=== PATIENT | female | born 1935 | race Caucasian/White ===

== ENCOUNTER 2022-03-17 10:33 | Inpatient (IN) ==
--- NOTE | 2022-02-12 13:12 | PAT Medication Instructions ---
Medication Instructions Date of Service February 12, 2022 Home Medications acetaminophen 500 mg capsule 1,000 mg PO Q6H PRN cholecalciferol (vitamin D3) 25 mcg (1,000 unit) capsule (Vitamin D3) 25 mcg PO QAM citalopram 40 mg tablet 40 mg PO QAM famotidine 20 mg tablet 20 mg PO DAILY PRN food supplemt, lactose-reduced 1 - 2 ea PO DAILY glucosamine-chondroitin 250 mg-200 mg tablet (Osteo Bi-Flex) 2 tab PO QAM guar gum 1 - 2 tbsp PO DAILY hydrochlorothiazide 12.5 mg capsule 12.5 mg PO QAM Centrum Silver Women 1 tab PO QAM omega-3 fatty acids 1,000 mg PO QAM potassium gluconate 595 mg (99 mg) tablet 595 mg PO QAM timolol 0.25 % eye drops 1 drp OPHTHALMIC (EYE) QAM trazodone 50 mg tablet 50 mg PO HS PRN STOP taking 2 weeks before surgery (or as soon as possible if surgery is within 2 weeks) glucosamine-chondroitin 250 mg-200 mg tablet (Osteo Bi-Flex) 2 tab PO QAM omega-3 fatty acids 1,000 mg PO QAM DO NOT take the morning of surgery cholecalciferol (vitamin D3) 25 mcg (1,000 unit) capsule (Vitamin D3) 25 mcg PO QAM food supplemt, lactose-reduced 1 - 2 ea PO DAILY guar gum 1 - 2 tbsp PO DAILY hydrochlorothiazide 12.5 mg capsule 12.5 mg PO QAM Centrum Silver Women 1 tab PO QAM potassium gluconate 595 mg (99 mg) tablet 595 mg PO QAM Take morning of surgery With a small sip of water, OTHERWISE NOTHING TO EAT OR DRINK AFTER MIDNIGHT: acetaminophen 500 mg capsule 1,000 mg PO Q6H PRN (okay to take up to 4 hours prior to surgery if needed) citalopram 40 mg tablet 40 mg PO QAM famotidine 20 mg tablet 20 mg PO DAILY PRN (if needed) timolol 0.25 % eye drops 1 drp OPHTHALMIC (EYE) QAM Take evening before surgery acetaminophen 500 mg capsule 1,000 mg PO Q6H PRN (if needed) famotidine 20 mg tablet 20 mg PO DAILY PRN (if needed) trazodone 50 mg tablet 50 mg PO HS PRN (if needed) Other Notes If you have any questions please call us at [phone] or [phone] or [phone] or [phone]
--- NOTE | 2022-02-17 09:00 | Anesthesiology Consultation ---
Date of Service February 17, 2022 Assessment & Plan (1) Encounter for pre-operative examination: Chart Review Chart Review: Acceptable Risk for Surgery (pending preop Covid testing results and most recent PCP note if available ) and Patient seen in Pre Admission Testing - Will attempt to get most recent PCP note scheduled 03/09/22 Per PAT appt on 02/17/22, patient denies any recent travel or large group activities. No known Covid positive exposures or Covid related symptoms. No known Covid infection in the past 90 days. Pt is vaccinated for Covid. Preop Covid testing scheduled 03/15/22 = will await results. Educated on importance of self quarantining, social distancing and wearing mask in public for the patient one week prior to surgery and after Covid testing done Teaching & Discussion Pre-Anesthesia Teaching/Discussion Notes: Instructed NPO after midnight before surgery,except medications with 15 cc of water. Medication instructions provided according to the PAT guidelines. History Surgery Operation Date: 03/17/22 13:25 Proposed Procedures p Right Total Shoulder Arthroplasty Reverse - Moses Luo MD Height/Weight Height: 5 ft 2 in Weight: 66.7 kg Allergies Allergy/AdvReac Type Severity Reaction Status Date / Time alendronate sodium Allergy Unknown HAS NO Verified 02/12/22 11:27 IDEA OF REACTION finasteride [From Proscar] Allergy Unknown UNSURE OF Verified 02/12/22 11:27 REACTION oxaprozin Allergy Unknown UNSURE OF Verified 02/12/22 11:27 REACTION Medications Home Medications Medication Instructions Recorded Confirmed Last Taken acetaminophen 500 mg capsule 1,000 mg PO Q6H PRN 02/12/22 02/12/22 Unknown cholecalciferol (vitamin D3) 25 25 mcg PO QAM 02/12/22 02/12/22 Unknown mcg (1,000 unit) capsule (Vitamin D3) citalopram 40 mg tablet 40 mg PO QAM 02/12/22 02/12/22 Unknown famotidine 20 mg tablet 20 mg PO DAILY PRN 02/12/22 02/12/22 Unknown food supplemt, lactose-reduced 1 - 2 ea PO DAILY 02/12/22 02/12/22 Unknown glucosamine-chondroitin 250 mg-200 2 tab PO QAM 02/12/22 02/12/22 Unknown mg tablet (Osteo Bi-Flex) guar gum 1 - 2 tbsp PO DAILY 02/12/22 02/12/22 Unknown hydrochlorothiazide 12.5 mg capsule 12.5 mg PO QAM 02/12/22 02/12/22 Unknown multivit with 1 tab PO QAM 02/12/22 02/12/22 Unknown pqhiknlb-rfxd-HL-lutein 8 mg iron-400 mcg-300 mcg tablet (Centrum Silver Women) omega-3 fatty acids 1,000 mg PO QAM 02/12/22 02/12/22 Unknown potassium gluconate 595 mg (99 mg) 595 mg PO QAM 02/12/22 02/12/22 Unknown tablet timolol 0.25 % eye drops 1 drp OPHTHALMIC (EYE) QAM 02/12/22 02/12/22 Unknown trazodone 50 mg tablet 50 mg PO HS PRN 02/12/22 02/12/22 Unknown Past Medical History Medical History Anxiety Glaucoma PRESCRIBED TIMOLOL- follows with eye doctor routinely History of diverticulitis Jun 2021 - seen in ED and treated per 11/2021 PCP note Hypertension Insomnia Lumbar stenosis Per PCP records- with front thigh pain with prolonged ambulation- improved with Tylenol Poor historian Urinary incontinence Exercise / Class Metabolic Activity III < 4 Walking/Shop/Light housework (one flight of stairs, no chest pain, mild SOB ) Past Family History Family History Other No family history of adverse response to anesthesia Past Surgical History Surgical History H/O abdominal surgery BENIGN GROWTH REMOVED>PT UNSURE OF DETAILS *CAN ONLY REMEMBER SQUASH IN SIZE AND CAUSED INTERNAL BLEEDING. History of anesthesia reaction SHOULDER SURGERY>HAD DIFFICULTY BREATHING IN RECOVERY PHASE History of appendectomy History of cataract surgery RT/LEFT History of colonoscopy History of hysterectomy Per records History of total knee replacement RT/LEFT History of total shoulder replacement LEFT S/p bilateral blepharoplasty Past Anesthesia History No Hx of Anesthesia Complications (with one exception of SOB after one surgery (either shoulder or knee surgery many years ago) (just given oxygen and had no other issues); no issues with subsequent surgeries ) and No Family Hx of Anesthesia Complications History of PONV No Hx of Motion Sickness and History of PONV (one episode of PONV s/p eye surgery ) Social History Smoking Status: Never smoker Hx Alcohol Use: No substance use type: does not use Review of Systems Hx of blood transfusion - many years ago- s/p surgery Patient denies chest pain, shortness of breath, dyspnea on exertion, reflux, cough, wheezing, palpitations. No hx of seizures, stroke, NC, apnea/snoring. No hx of blood clots. Physical Exam Vital Signs VITALS BP 132/68 P 54 TEMP 97.9 SP02 97% RESP 16 Constitutional no acute distress ENMT Mouth: no TMJ clicking Thyromental Distance: > or= 3.5 Finger Breadths (3.5) Mallampati Class: I (smaller airway ) Top front teeth capped Missing molars and side teeth Neck + limited neck extension Respiratory normal respiratory effort; no respiratory distress Auscultation: lungs clear to auscultation bilaterally; no wheezes Cardiovascular Rate/Rhythm: regular rate and regular rhythm Heart Sounds: no murmur Vessels: no carotid bruit Musculoskeletal Spine: + pain with cervical ROM (tighess with neck extension ) Extremities: extremities normal to inspection Psychiatric Orientation: alert Lab Results Anesthesia Preop Results Results Anesthesia Widget: WBC 4.86 K/uL (4.8-10.8) 02/17/22 Hgb 11.5 g/dL (12.0-16.0) L 02/17/22 Hct 34.7 % (37-47) L 02/17/22 Plt 146 K/uL (130-400) 02/17/22 Na 137 mmol/L (136-145) 02/17/22 K 3.9 mmol/L (3.5-5.1) 02/17/22 Cl 103 mmol/L (98-107) 02/17/22 CO2 29 mmol/L (21-32) 02/17/22 BUN 30 mg/dl (6-23) H 02/17/22 Creat 1.02 mg/dl (0.6-1.2) 02/17/22 Glucose Level 89 mg/dl (70-99(Fasting)) 02/17/22 PT 11.0 Seconds (9.0-12.0) 02/17/22 PTT 25.8 Seconds (21.0-31.0) 02/17/22 INR 1.0 (0.9-1.1) 02/17/22 HA1c 5.4 % (4.5-5.6) 02/17/22 Urine Color Yellow 02/17/22 Urine Appearance Clear (Clear) 02/17/22 Urine pH 5.5 (4.5-7.5) 02/17/22 Urine Specific [place] 1.018 (1.000-1.030) 02/17/22 Urine Protein Negative (Negative) 02/17/22 Urine Glucose (UA) Negative (Negative) 02/17/22 Urine Ketones Negative (Negative) 02/17/22 Urine Blood Negative (Negative) 02/17/22 Urine Nitrite Negative (Negative) 02/17/22 Urine Bilirubin Negative (Negative) 02/17/22 Urine Urobilinogen Negative (Negative) 02/17/22 Urine Leukocyte Esterase 2+ (Negative) H 02/17/22 Urine WBC (Auto) 10-30 /hpf (0-5) H 02/17/22 Urine RBC (Auto) 0-4 /hpf (0-4) 02/17/22 Urine Hyaline Casts (Auto) 1-5 /lpf (0-5) 02/17/22 Urine Epithelial Cells (Auto) 5-10 /lpf (0-5) H 02/17/22 Urine Bacteria (Auto) Negative (Negative) 02/17/22 Blood Type A Positive 02/17/22 Antibody Screen NEGATIVE 02/17/22 Testing Electrocardiogram Date: 02/17/22 Findings: + SB @ (52bpm ) Otherwise normal EKG per cardio. Chest X-Ray Date: 02/17/22 Findings: + NAD
--- NOTE | 2022-03-16 11:44 | History & Physical Report ---
Date of Service March 16, 2022 Assessment & Plan (1) Primary osteoarthritis, right shoulder: Plan: Treatment options discussed with the patient. She has failed conservative measures and would like to proceed with surgical intervention. Risks, benefits and alternatives to surgery including but not limited to infection, DVT, pain, stiffness, need for revision surgery, damage to blood vessels, damage to nerves, PE, , were discussed with the patient and they wish to proceed. Plan for right shoulder reverse total shoulder arthroplasty scheduled for [facility] on 03/17/[address] Luo. All questions answered. Patient will follow up post op. History of Present Illness Chief Complaint: Right shoulder pain Primary Care Provider: Wilbert Henson MD 86yo female with PMHx significant for HTN, anxiety, GERD presents with ongoing right shoulder pain. Pain is interfering with her daily activities. She has failed conservaitve measures and would like to proceed with surgical intervention. Patient denies headaches, sweats, fevers, chills, double vision, blurred vision, cough, sore throat, dysphagia, chest pain, sob, wheezing, n/v/d/c, numbness, tingling, fatigue, urinary symptoms, mood disorders. ROS positive for right shoulder. pain and stiffness. Allergies Allergy/AdvReac Type Severity Reaction Status Date / Time alendronate sodium Allergy Unknown HAS NO Verified 02/12/22 11:27 IDEA OF REACTION finasteride [From Proscar] Allergy Unknown UNSURE OF Verified 02/12/22 11:27 REACTION oxaprozin Allergy Unknown UNSURE OF Verified 02/12/22 11:27 REACTION Home Medications Medication Instructions Recorded Confirmed Type acetaminophen 500 mg capsule 1,000 mg PO Q6H PRN 02/12/22 02/12/22 History cholecalciferol (vitamin D3) 25 25 mcg PO QAM 02/12/22 02/12/22 History mcg (1,000 unit) capsule (Vitamin D3) citalopram 40 mg tablet 40 mg PO QAM 02/12/22 02/12/22 History famotidine 20 mg tablet 20 mg PO DAILY PRN 02/12/22 02/12/22 History food supplemt, lactose-reduced 1 - 2 ea PO DAILY 02/12/22 02/12/22 History glucosamine-chondroitin 250 mg-200 2 tab PO QAM 02/12/22 02/12/22 History mg tablet (Osteo Bi-Flex) guar gum 1 - 2 tbsp PO DAILY 02/12/22 02/12/22 History hydrochlorothiazide 12.5 mg capsule 12.5 mg PO QAM 02/12/22 02/12/22 History multivit with 1 tab PO QAM 02/12/22 02/12/22 History anxxwmnc-usxd-YK-lutein 8 mg iron-400 mcg-300 mcg tablet (Centrum Silver Women) omega-3 fatty acids 1,000 mg PO QAM 02/12/22 02/12/22 History potassium gluconate 595 mg (99 mg) 595 mg PO QAM 02/12/22 02/12/22 History tablet timolol 0.25 % eye drops 1 drp OPHTHALMIC (EYE) QAM 02/12/22 02/12/22 History trazodone 50 mg tablet 50 mg PO HS PRN 02/12/22 02/12/22 History Past Med/Surg History Medical History Anxiety Glaucoma PRESCRIBED TIMOLOL- follows with eye doctor routinely History of diverticulitis Jun 2021 - seen in ED and treated per 11/2021 PCP note Hypertension Insomnia Lumbar stenosis Per PCP records- with front thigh pain with prolonged ambulation- improved with Tylenol Poor historian Urinary incontinence Surgical History H/O abdominal surgery BENIGN GROWTH REMOVED>PT UNSURE OF DETAILS *CAN ONLY REMEMBER SQUASH IN SIZE AND CAUSED INTERNAL BLEEDING. History of anesthesia reaction SHOULDER SURGERY>HAD DIFFICULTY BREATHING IN RECOVERY PHASE History of appendectomy History of cataract surgery RT/LEFT History of colonoscopy History of hysterectomy Per records History of total knee replacement RT/LEFT History of total shoulder replacement LEFT S/p bilateral blepharoplasty Family History Other No family history of adverse response to anesthesia Social History Smoking Status: Never smoker Second Hand Exposure: Yes (IN THE PAST); Hx Alcohol Use: No Preferred Language: [place] [employer] Equipment Mechanic Required: No Beliefs That Will Affect Care: None Current Living Situation: Alone Feels Safe at Home: Yes Assistive Devices: Cane and Glasses Review of Systems All systems reviewed & are unremarkable except as noted in HPI & below Physical Exam Constitutional: well developed and well nourished; no acute distress Eyes: PERRL, conjunctivae normal, anicteric sclerae ENMT: external ear and nose normal, oropharynx normal Neck: trachea midline, no thyromegaly Respiratory: normal respiratory effort, lungs clear to auscultation Cardiovascular: Rate/Rhythm: regular rate and regular rhythm Heart Sounds: no murmur Extremities: + edema Musculoskeletal: Right shoulder: Crepitation noted with ROM. Diffuse tenderness. Positive impingement signs. FF to 100 degrees, abduction to 70 degrees, ER to 40 degrees. Weakness with strength testing. Skin: no rashes, warm and dry Neurologic: patellar DTR's 2+ bilat, sensation intact Psychiatric: A+Ox3, euthymic affect Results & Data ([facility]) Diagnostic Findings X-rays of her right shoulder demonstrates that she is bone on bone in the glenohumeral joint, and she has proximal migration of the humerus with decreased acromiohumeral interval consistent with chronic rotator cuff tear. There is a large greater tuberosity bone spur. She has some widening of the AC joint and narrowing of the width of the acromion, possibly from previous arthroscopic surgery, but she has no recollection of prior surgery.
[~2022-03-17 10:33] MED LIST: ACETAMINOPHEN 500 MG TAB PO SCH; BUPIVACAINE 0.5 % 5 MG/1 ML PF 10ML VIAL ONE; CeleBREX 200 MG CAP PO SCH; FAMOTIDINE 20 MG TAB PO SCH; GABAPENTIN 300 MG CAP PO SCH; LR 15ML/HR IV SCH; METOCLOPRAMIDE HCL 10 MG TABLET PO SCH; TRANEXAMIC ACID 1,000 MG **IV Intra-op IV SCH; TRANEXAMIC ACID 1,000 MG **IV Pre-op IV SCH; ceFAZolin 2000MG 2,000 MG/15 ML SYR IV SCH; dexAMETHasone 4 MG TAB PO SCH
[2022-03-17] MEDS ORDERED: HYDROmorphone INJ 1 MG/ML SYRINGE IV PRN (10:37)
[2022-03-17] MEDS ORDERED: ATROPINE SULFATE 0.1 MG/ML 10ML SYR IV PRN (10:37)
[2022-03-17] MEDS ORDERED: MEPERIDINE HCL 25 MG/ML CARP/VIAL IV PRN (10:37)
[2022-03-17] MEDS ORDERED: PHENYLEPHRINE 100MCG/ML 5ML SYR IV PRN (10:37)
[2022-03-17] MEDS ORDERED: ePHEDrine sulfate 50 MG/ML AMP IV PRN (10:37)
[2022-03-17] MEDS ORDERED: fentaNYL citrate 100 MCG/2 ML VIAL IV PRN (10:37)
[2022-03-17] MEDS ORDERED: LABETALOL HCL IV 5 MG/ML 20ML IV PRN (10:37)
[2022-03-17] MEDS ORDERED: ONDANSETRON INJ 2 MG/ML 2 ML VIAL IV PRN (10:37)
[2022-03-17] MEDS ORDERED: SUCCINYLCHOLINE CHLORIDE 20 MG/ML 10 ML VIAL IV ONE (11:29)
[2022-03-17] MEDS ORDERED: PROPOFOL IV EMULSION 10 MG/ML 20 ML VIAL IV ONE (11:29)
[2022-03-17] MEDS ORDERED: DEXAMETHASONE SOD INJ 4 MG/ML VIAL ONE (11:29)
[2022-03-17] MEDS ORDERED: ONDANSETRON INJ 2 MG/ML 2 ML VIAL ONE ×2 (11:29→15:46)
[2022-03-17] MEDS ORDERED: fentaNYL citrate 100 MCG/2 ML VIAL ONE (11:29)
--- NOTE | 2022-03-17 12:35 | History & Physical Bridge Note ---
Date of Service March 17, 2022 History & Physical Bridge Note I have examined the patient, reviewed the History & Physical and in the interval since the performance of the History & Physical I have noted the following changes of clinical significance: no changes noted
[2022-03-17] MEDS ORDERED: LARYING-O-JET KIT (LTA) ONE (13:39)
[2022-03-17] MEDS ORDERED: ePHEDrine sulfate 50 MG/ML AMP ONE (13:39)
[2022-03-17] MEDS ORDERED: PHENYLEPHRINE HCL 10 MG/ML VIAL ONE (13:39)
[2022-03-17] MEDS ORDERED: ROCURONIUM BROMIDE 10 MG/ML 5 ML VIAL IV ONE ×3 (13:39→15:17)
--- NOTE | 2022-03-17 16:28 | Post Operative Brief Note ---
Immediate Post Op Note v1 Date of Surgery March 17, 2022 Pre & Post Diagnosis Operation Date: 03/17/22 12:50 Pre-Op Diagnosis: Right Glenohumeral Shoulder Osteoarthritis Right Rotator Cuff Arthropathy Chronic Rotator Cuff Tear Post-Op Diagnosis: Right Glenohumeral Shoulder Osteoarthritis Right Rotator Cuff Arthropathy Chronic Rotator Cuff Tear, retracted proximal biceps tendon, chronic hemorrhagic subacromial bursitis, failed rotator cuff repair with retained hardware and suture material, degenerative glenoid bone cysts I identified the patient and participated in the time-out.: Yes Procedure Operation Date: 03/17/22 12:50 Actual Procedures p Right Total Shoulder Arthroplasty Reverse(Right), removal old rotator cuff repair hardware suture anchors and suture material, excision hemorrhagic subacromial subdeltoid bursitis, curettage bone grafting glenoid cyst with humeral head autograft Moses Luo MD Surgeon Moses Luo MD [employer] Operator [place] Estimated Blood Loss 100 Findings Consistent with Post-Op Diagnosis Specimens Humeral head Hemorrhagic bursa subdeltoid subacromial Drains Hemovac Drain Anesthesia Type General Regional Complications none Disposition Disposition: Recovery Room Overlapping Procedure I was immediately available: during the entire case.
--- NOTE | 2022-03-17 16:53 | Operative Report ---
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 Moses Luo MD Surgeon Moses Luo MD Resaw Tailer Gorge HURLEY Estimated Blood Loss 100 Findings Consistent with Post-Op Diagnosis Specimens Humeral head and the subdeltoid, subacromial bursa material Drains 2 Hemovac Anesthesia Type General Regional Complications none Disposition Disposition: Recovery Room Indications 86-year female with chronic right shoulder pain failed conservative management. Radiographs demonstrate proximal migration humerus consistent with chronic rotator cuff tear with narrowed acromiohumeral interval and end-stage glenohumeral osteoarthritis [id number]. Patient still quite active for stated age. Description of Procedure The patient was taken to the operating room and anesthetized under regional block and general anesthetic. The patient was positioned on the operating table in a 30 beach chair position with a towel roll under the medial border of the right scapula. The arm was draped free to be able to manipulate the shoulder as needed. The right upper extremity was prepped and draped in usual sterile fashion. Exam demonstrated 120 degrees forward flexion, 70 degrees abduction, 20 degrees external rotation, 40 degrees internal rotation, [id number] crepitation, large area of subdeltoid swelling. An anterior deltopectoral approach was performed. A longitudinal incision was made in the deltopectoral interval. The skin was incised sharply. Subcutaneous flaps were elevated off the fascia. The cephalic vein was dissected out and retracted lateral with the deltoid. There was a purplish discoloration of a large fluid collection underlying the clavipectoral fascia and extending up in the subacromial bursa and under the lateral deltoid under the conjoined tendon and superior to the glenoid area. It appeared to be a large subacromial subdeltoid bursal chronic bursitis with hemorrhagic fluid within it with no active bleeding. The clavipectoral fascia was divided at the lateral margin of the conjoined tendon and extended up to the CA ligament. Part of the superior CA ligament was released for superior exposure. Dissection was performed around the large bursal collection in subacromial space subdeltoid region subcoracoid region taking care not to go too far medial to stay away from the vessels. The large bursal collection was first drained demonstrating chronic purplish discol ored fluid consistent with old blood and joint fluid. The bursa tissue was resected with Hernandez scissors. This revealed an intact subscapularis tendon with tendinopathy with a chronic rotator cuff tear of the supraspinatus and infraspinatus with the defect between the infraspinatus and teres minor posteriorly intact lower portion of teres minor. There was degenerative fraying some calcifications in the tendon tissue marked degeneration of the tissue. The biceps tendon was absent and retracted. There is suture anchors in the greater tuberosity area in the area of the tear with failed rotator cuff repair. Suture anchors were variety of peek type anchors with braided suture. Suture anchors and suture material removed I could be visualized prior to the cut was made. The upper centimeter of the pectoralis was released for inferior exposure. A self-retaining retractor was placed. The subscapularis muscle fibers were split longitudinally at the level of the circumflex vessels. The circumflex vessels were identified and tied off with silk ties and divided laterally. A Kitner elevator was used to free up the inferior fibers of the subscapularis off of the capsule. The axillary nerve was identified with a tug test and protected with a blunt Adriana retractor between the nerve and the capsule. The subscapularis tendon was then taken down off of the lesser tuberosity subperiost eally, a Vicryl traction suture was placed and a subperiosteal dissection was performed along the neck of the humerus as the arm was gradually externally rotated exposing the humeral head. The humeral head findings demonstrated exposed bone grade 4 osteoarthritis [id number] with inferior osteophytes that were moderate in size. retractors were readjusted and the inferior osteophytes were all resected using a rongeur. A Suarez elevator was used to assist in releasing the capsule of the neck of the humerus. The capsule was divided with Hernandez scissors down to the glenoid released off the anterior glenoid and the rotator interval was released to meet the capsular release and a 360 release of the subscapularis was accomplished. A Fukuda retractor was placed into the joint retracting the humeral head posterior. Glenoid findings demonstrated complete exposed bone devoid of any articular cartilage with a large inferior slightly anterior cyst which was about 8 mm in diameter and width and up to 12 mm and an oval fashion superior to inferior. There are also superior cysts and superior glenoid and some other small cysts noted. Labrum was degenerative frayed and there was chronic synovitis. The labrum was resected. an anterior- inferior and posterior inferior capsular release were performed with electrocautery and a Suarez elevator on bone with the axillary nerve protected inferiorly by the retractor. A Suarez elevator was used to release the triceps attachment and perform some of the capsular release around the glenoid as well. attention was then taken to the humeral preparation. The cutting guide was placed into the humeral head. It was positioned at 20 of retroversion. Oscillating saw was used to resect the humeral head giving the cut above the level of the posterior rotator cuff insertion site. This revealed further peek anchors in the greater tuberosity and proximal humerus area which had to be removed with a rongeur and associated suture material was also removed in order to be able to place the appropriate centering awl and broaches. The humerus was then prepared for the stem. I used the ascend flex stem from [employer]. The sizing broaches were used followed by trial broaches up to a size 4 which had the appropriate fit and fill. The appropriate sized cut protector was placed. The humerus was then retracted posterior to the glenoid. The glenoid was sized for a 25 baseplate. The guide for the baseplate was positioned in a 10 inferior tilt and the central drill hole was made. I had to place this hole just above the large cyst so would not enter the cyst wall and become unstable. The reamer for the 25 mm baseplate was used. The central drill was widened for the peg. Glenoid cysts were then curetted out. Debris was removed with curette and rongeur. The glenoid was copiously irrigated. Cancellous bone graft was harvested from the humeral head subchondral cancellous bone. Bone graft was impacted into the cysts and then the aequalis 25 mm hydroxyapatite-coated baseplate was impacted into position. There was good fixation with just the central peg. The base plate was transfixed with superior and inferior locking screws and anterior and posterior compression screws with stable fixation. The posterior screw did not have good fixation so was removed and the hole was bone grafted with more the humeral head graft. 3 screw fixation was satisfactory as the glenoid baseplate was completely solid. The fan reamer was used for the 36 millimeter glenoid sphere. After irrigation the 36 glenoid sphere was impacted onto the baseplate and the security screw was tightened. Stability was assessed with a Suarez elevator and the implant was stable. Attention was taken back to the humerus. The cut protector was removed and the plus or high offset humeral tray trial was assembled to the trial stem rotated appropriately to get bony coverage and then screwed in position. A trial reduction was performed. A +6 reversed trial insert demonstrated good stability and no shuck. The trials were removed. 3 drill holes are made into the harder bone in the bicipital groove area and 3 #5 FiberWire sutures were placed transosseously. The canal was irrigated with pulsatile saline solution The final component was assembled. The final component was [employer] 4B PTC long stem assembled to plus or high offset tray and a 36+6 reversed insert. This was then impacted into the humerus with a tight press-fit. It was reduced to the glenoid sphere. Stability was verified. Subscapularis was repaired with the #5 FiberWire sutures using Arnaldo- Antohny suture technique. Lateral row soft tissue repair was performed with #2 FiberWire [id number]-yh-[id number] sutures. The infraspinatus was pulled posteriorly to the teres minor closing the gap between the 2 after the area was debrided. Interrupted #2 FiberWire sutures were placed to improve external rotation strength. The pectoralis was repaired with #2 FiberWire [id number]-[id number] sutures reinforcing the biceps tendon tenodesis. The arm was taken through a range of motion which demonstrated 45 degrees external rotation forward flexion 140 degrees abduction 90 degrees internal [id number] degrees without tension on repair the implant was stable through the range of motion tested. The wound was copiously irrigated. 2 Hemovac drains were placed. The deltopectoral interval was closed with [id number]-nu-iztem #1 Vicryl sutures. The subcutaneous tissues were closed with 2-0 Vicryl sutures. The skin was closed with rudy. Sterile dressings were applied and a shoulder immobilizer. Gorge HURLEY my physician assistant front office manager acted as airline pilot/first officer throughout the procedure .He performed functions including patient positioning, arm positioning, prepping and draping, soft tissue retraction, instrument management, suture management and performed the subcutaneous and skin closure and will participate in the postoperative care of the patient. I attest to the content of the Intraoperative Record and any orders documented therein. Any exceptions are noted below.
--- NOTE | 2022-03-17 17:03 | XRay Report ---
RIGHT SHOULDER 2 VIEWS CLINICAL HISTORY: Postoperative examination. FINDINGS: 2 portable views the right shoulder are obtained. The skeletal structures are osteopenic. A right shoulder arthroplasty is in near anatomic alignment. No acute fracture is seen. There is widen ing at the AC joint. Skin clips, a surgical drain, soft tissue swelling, and subcutaneous gas overlyi ng the right shoulder are expected postoperative findings. The right lung parenchyma is clear as visu alized. IMPRESSION: Expected postoperative findings status post right shoulder arthroplasty. No acute fractur e is seen. Electronically signed by: Mikey Mcclain M.D. 03/17/2022 5:02 PM
--- NOTE | 2022-03-17 17:22 | Anesthesiology Progress Note ---
Date of Service March 17, 2022 Anesthesia Post Procedure Vital Signs Vital Signs: Temp Pulse Pulse Resp BP Pulse Ox 03/17/22 17:10 63 15 126/66 99 03/17/22 17:00 63 14 130/65 99 03/17/22 16:50 63 18 132/67 99 03/17/22 16:40 64 20 125/64 99 03/17/22 16:33 96.8 F L 68 16 124/87 99 03/17/22 10:56 98.4 F 71 20 140/90 20 L Transfer of Care Handoff Completed per policy Notes Mental Status: alert / awake / arousable and participated in evaluation Patient Amnestic to Procedure: Yes Nausea / Vomiting: adequately controlled Pain: adequately controlled Airway Patency, RR, SpO2: stable & adequate BP & HR: stable & adequate Hydration State: stable & adequate Anesthetic Complications: no major complications apparent and Pt Satisfied with anesthetic care
[2022-03-17] MEDS ORDERED: oxyCODONE HCL IR 5 MG TAB (IMMEDIATE RELEASE) PO PRN (18:36)
[2022-03-17] MEDS ORDERED: MAGNESIUM HYDROXIDE SUSP 30 ML UDC PO PRN (18:36)
[2022-03-17] MEDS ORDERED: FAMOTIDINE 20 MG TAB PO PRN (18:36)
[2022-03-17] MEDS ORDERED: bisacodyL 10 MG SUPP PR PRN (18:36)
[2022-03-17] MEDS ORDERED: traZODone HCL 50 MG TAB PO PRN (18:36)
[2022-03-17] MEDS ORDERED: METOCLOPRAMIDE HCL INJ 5 MG/ML 2 ML VIAL IV PRN (18:36)
[2022-03-17] MEDS ORDERED: NALOXONE HCL 0.4 MG/1 ML VIAL/CARP IV PRN (18:36)
[2022-03-17] MEDS ORDERED: SODIUM CHLORIDE 0.9% 1000ML 1,000 ML IV SCH (18:36)
--- NOTE | 2022-03-17 19:36 | Hospitalist Consultation ---
Date of Consultation March 17, 2022 Assessment & Plan (1) Primary osteoarthritis, right shoulder: Ailin Rios is an 86-year-old female with past medical history of hypertension, depression/anxiety, reflux, glaucoma who underwent right total shoulder arthroplasty. Right shoulder osteoarthritis Now status post right total shoulder arthroplasty Pain management and DVT prophylaxis per orthopedics PT/OT consulted Anemia Preop labs with hemoglobin of 11.5 Per PCP note review she has had history of prior hemoglobin measurements around this level Monitor CBC in a.m. Hypertension Per review of PCP note, patient off of hydrochlorothiazide blood pressure well controlled with potential plans to discontinue altogether Will continue to hold hydrochlorothiazide at this time as BP continues to be under control Depression/anxiety Patient off of citalopram for about 10 days preop At this point citalopram will have washed out of her system We will continue to hold this medication, as PCP potentially planning to restart at lower dosing Insomnia Patient somewhat somnolent after surgery Will hold as needed trazodone at this time Reflux Continue home famotidine as needed Glaucoma Continue home timolol drops DVT prophylaxis: Per orthopedics Diet: Regular, patient not tolerating much p.o. at time of evaluation, will continue IV fluids until 6 AM Dispo: MedSurg, PT/OT consults CODE STATUS: Full (2) Anxiety: (3) Anemia: (4) Hypertension: (5) Glaucoma: (6) Insomnia: Supervising Physician Co-Signing Physician Notes Patient seen and examined, chart reviewed, case discussed with Dr. Meli Dewitt and I agree with the assessment and plan as above. In brief, patient is an 86yo female s/p right total shoulder arthroplasty performed by Dr. Luo today under general/regional anesthesia. Surgery well tolerated with no complications. EBL 100mL/ Patient is resting comfortably in bed. Still with numbness of hand. She discontinued ALL of her home medications 10 days prior to her surgery. Home medications included Citalopram for depression, HCTZ for hypertension and Trazodone PRN insomnia. On exam she is resting comfortably, NAD BP has been ranging 123 - 140 / 64 - 90 during this admission Skin - dressing in place, no bleeding HEENT - MMM, Neck supple Heart - +S1/S2, regular, no m/r/g Lungs - CTA Abd - +BS, soft, NT/ND Ext - no edema, RUE in sling Labs and images reviewed Assessment/Plan -S/P right total shoulder - pain control, anti-emetics and bowel regimen per primary team. PT/OT and discharge planning per primary team. -Hypertension - patient has been OFF of her HCTZ for 10 days. Blood pressure is well controlled at this time. Will continue to hold this medication. Patient should monitor her blood pressure at home if able and issue of resuming home HCTZ should be discussed with PCP -Depression - patient has been OFF of her Citalopram for 10 days. While not recommended to stop this medication abruptly, patient does not seem to have any side effects. T 1/2 of Citalopram is appx 1.5 days - appropriate washout time has passed at this time - do not anticipate development of withdrawal symptoms. Will continue to HOLD Citalopram at this time because patient feels well without it. The issue of resuming, possibly at a lower dose is to be discussed with PCP. -Remainder as above History of Present Illness Reason for Consultation: Routine medical management Attending Physician: Moses Luo MD History of Present Illness Ailin Rios is an 86-year-old female with past medical history of hypertension, depression/anxiety, reflux, glaucoma who underwent right total shoulder arthroplasty earlier today. She had tried and failed conservative measures and decided to proceed with surgery after risk/benefit discussion with her orthopedic team. Her procedure today was without complications. Seen at bedside in the afternoon and she is a bit drowsy but otherwise doing well. She denies any current pain, states that her shoulder is still a bit numb from anesthesia. Denying chest pain, palpitations, nausea, vomiting, shortness of breath, cough, fever, chills, abdominal pain, headache, dizziness, numbness, tingling. Patient's granddaughter in the room. Granddaughter states that the patient was unable to tolerate much oral nutrition/hydration thus far. Per review of patient's medical clearance note, her PCP had documented that the patient had stopped all her oral medications 10 days prior to surgery. She had been off of her hydrochlorothiazide, Celexa, vitamins and supplements. At that time, she did not report any side effects from discontinuing her medications, specifically no side effects concerning for SSRI withdrawal at that time. Per review of the PCP note, her blood pressure has remained well controlled off of the hydrochlorothiazide and they were planning to potentially stop that medication altogether if blood pressure continued to be well controlled postoperatively. Additionally, as she had been off of Celexa and doing well, they discussed potentially restarting the medication at half the previous dose. Patient states that she has yet to take any of her oral medications and continues to do well. When asked whether she has any mood issues or worsening of her anxiety/depression, she states that she does not. Does admit to some mild depression and anxiety, but no worse than usual for her. Allergies Allergy/AdvReac Type Severity Reaction Status Date / Time alendronate sodium Allergy Unknown HAS NO Verified 03/17/22 11:03 IDEA OF REACTION finasteride [From [employer]] Allergy Unknown UNSURE OF Verified 03/17/22 11:03 REACTION oxaprozin Allergy Unknown UNSURE OF Verified 03/17/22 11:03 REACTION Home Medications Medication Instructions Recorded Confirmed Type acetaminophen 500 mg capsule 1,000 mg PO Q6H PRN 02/12/22 03/17/22 History cholecalciferol (vitamin D3) 25 25 mcg PO QAM 02/12/22 03/17/22 History mcg (1,000 unit) capsule (Vitamin D3) citalopram 40 mg tablet 40 mg PO QAM 02/12/22 03/17/22 History famotidine 20 mg tablet 20 mg PO DAILY PRN 02/12/22 03/17/22 History food supplemt, lactose-reduced 1 - 2 ea PO DAILY 02/12/22 03/17/22 History glucosamine-chondroitin 250 mg-200 2 tab PO QAM 02/12/22 03/17/22 History mg tablet (Osteo Bi-Flex) guar gum 1 - 2 tbsp PO DAILY 02/12/22 03/17/22 History hydrochlorothiazide 12.5 mg capsule 12.5 mg PO QAM 02/12/22 03/17/22 History multivit with 1 tab PO QAM 02/12/22 03/17/22 History fwrjxpid-ylpd-UF-lutein 8 mg iron-400 mcg-300 mcg tablet (Centrum Silver Women) omega-3 fatty acids 1,000 mg PO QAM 02/12/22 03/17/22 History potassium gluconate 595 mg (99 mg) 595 mg PO QAM 02/12/22 03/17/22 History tablet timolol 0.25 % eye drops 1 drp OPHTHALMIC (EYE) QAM 02/12/22 03/17/22 History trazodone 50 mg tablet 50 mg PO HS PRN 02/12/22 03/17/22 History Patient History Medical History (Updated 03/17/22 @ 21:54 by Leon Patel MD) Anemia Anxiety Glaucoma PRESCRIBED TIMOLOL- follows with eye doctor routinely History of diverticulitis Jun 2021 - seen in ED and treated per 11/2021 PCP note Hypertension Insomnia Lumbar stenosis Per PCP records- with front thigh pain with prolonged ambulation- improved with Tylenol Poor historian Urinary incontinence Surgical History H/O abdominal surgery BENIGN GROWTH REMOVED>PT UNSURE OF DETAILS *CAN ONLY REMEMBER SQUASH IN SIZE AND CAUSED INTERNAL BLEEDING. History of anesthesia reaction SHOULDER SURGERY>HAD DIFFICULTY BREATHING IN RECOVERY PHASE History of appendectomy History of cataract surgery RT/LEFT History of colonoscopy History of hysterectomy Per records History of total knee replacement RT/LEFT History of total shoulder replacement LEFT S/p bilateral blepharoplasty Family History Other No family history of adverse response to anesthesia Social History Smoking Status: Never smoker Second Hand Exposure: Yes (IN THE PAST); Hx Alcohol Use: No Preferred Language: Zimbabwean Incident Response Lead Required: No Beliefs That Will Affect Care: None Current Living Situation: Alone Feels Safe at Home: Yes Safety Concerns: Feels Safe At This Time Assistive Devices: Cane and Glasses Review of Systems Review of Systems: All systems reviewed & are unremarkable except as noted in HPI & below Physical Exam Physical Exam: GENERAL: A&Ox3. NAD. HEENT: PERRL, EOMI. Moist mucous membranes. NECK: No JVD. No lymphadenopathy. CHEST/LUNGS: CTAB A/P, slightly diminished breath sounds at bilateral bases. No crackles, wheezes, rales, rhonchi. HEART: RRR. No m/g/r. No carotid bruits. ABDOMEN: NT/ND, soft. BS+ x4 EXTREMITIES: No cyanosis, no clubbing, no edema. Right arm in sling. SKIN: Warm and dry. No rashes or lesions. PSYCHIATRIC: Euthymic affect, no SI, no pressured speech, no hallucinations NEUROLOGIC: No FND. CN II-XII grossly intact. Results & Data Results & Data ([facility]) Vital Signs (Past 12 Hours) Vital Signs Temp Pulse Pulse Resp BP Pulse Ox 03/17/22 19:06 36.4 C L 69 16 127/73 94 03/17/22 18:30 36.5 C 67 16 125/71 95 03/17/22 18:20 65 20 124/65 99 03/17/22 18:10 36.4 C L 62 16 123/64 99 03/17/22 18:00 62 18 133/71 98 03/17/22 17:50 62 16 125/67 100 03/17/22 17:40 61 12 123/65 100 03/17/22 17:30 62 12 123/65 100 03/17/22 17:20 60 15 127/65 100 03/17/22 17:10 63 15 126/66 99 03/17/22 17:00 63 14 130/65 99 03/17/22 16:50 63 18 132/67 99 03/17/22 16:40 64 20 125/64 99 03/17/22 16:33 36.0 C L 68 16 124/87 99 03/17/22 10:56 36.9 C 71 20 140/90 20 L Resident Activity Tracking Resident Involvement: Resident Care Provided Care Provided: Adult Hospital Medicine
[2022-03-17] MEDS: ACETAMINOPHEN 500 MG TAB PO SCH (20:41)
[2022-03-17] MEDS: DOCUSATE SODIUM 100 MG CAP PO SCH (20:41)
[2022-03-17] MEDS: SENNA 8.6 MG TAB PO SCH (20:42)
[2022-03-17] MEDS: ceFAZolin 1000MG 1,000 MG/7.5 ML SYR IV SCH (20:43)
--- NOTE | 2022-03-17 22:57 | Billing Data ---
Date of Service March 17, 2022 Coding Level of Care Code 18606 Inpt Consult Level 3
[2022-03-18] MEDS: ceFAZolin 1000MG 1,000 MG/7.5 ML SYR IV SCH (05:04)
[2022-03-18] MEDS: ACETAMINOPHEN 500 MG TAB PO SCH ×2 (05:04→14:38)
[2022-03-18 06:33] LABS: Est GFR (African American) 55.3 ml/min; Est GFR (Non-African American) 47.7 ml/min; Potassium 4.4 mmol/L (3.5-5.1)
[2022-03-18 06:34] LABS: Calcium 8.4 mg/dl (8.5-10.1); Creatinine Clr Calc Pharmacy 33.8 ml/min
[2022-03-18 06:43] LABS: Hematocrit (blood only) 29.7 % (37-47); Hemoglobin 10.1 g/dL (12.0-16.0); Mean Corpuscular Hemoglobin 32.3 pg (25-34); Mean Corpuscular Volume 94.9 fL (80-100); Platelet Count 120 K/uL (130-400); RDW Coefficient of Variation 12.6 % (11.5-14.5); Red Blood Count 3.13 M/uL (4.2-5.4)
[2022-03-18 06:44] LABS: Basophils # (auto) 0.01 K/uL (0-0.2); Basophils % (auto) 0.2 %; Lymphocytes % (auto) 8.3 %; Monocytes # (auto) 0.61 K/uL (0.11-0.59); Monocytes % (auto) 10.2 %; Neutrophils # (auto) 4.88 K/uL (1.4-6.5); Neutrophils % (auto) 81.3 %; Platelet Estimate Decreased (Normal); RBC Morphology Unremarkable
--- NOTE | 2022-03-18 07:28 | Hospitalist Progress Note ---
Date of Service March 18, 2022 Assessment & Plan (1) Primary osteoarthritis, right shoulder: Plan: Ailin Rios is an 86-year-old female with past medical history of hypertension, depression/anxiety, reflux, glaucoma who underwent right total shoulder arthroplasty. Right shoulder osteoarthritis POD#1 s/p Right Total Shoulder Arthroplasty Reverse(Right), removal hardware (peek suture anchors and suture material), excision large subacromial subdeltoid bursa, debridement and repair posterior rotator cuff. Moses Luo MD. EBL 100cc. Post-op management per orthopedics Hgb 11.5-->10.1, acute blood loss anemia in patient with chronic anemia, due to surgery and dilutional from IVF post-operatively *nausea/vomiting x 1 am 03/18, patient reports this occurs after every surgery and I did discuss with ortho pa, possible antiemetics at al, however rec if any further need for surgery/anesthesia in future consideration for scopolamine patch drain management per orthopedics PT/OT consults pending -- home with outpatient therapy planned Hypertension BP stable off HCTZ Monitor BPs at home recommended, but possible no need and adhere to low Na diet Depression/anxiety Stable, 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 Please call with any questions/concerns. (2) Anxiety: (3) Anemia: (4) Hypertension: (5) Glaucoma: (6) Insomnia: Admission and Anticipated Discharge Date Admission Date: March 17, 2022 Subjective patient evaluated this morning. not eating much after surgery and had some emesis this morning, improved with medication and toast later this morning. sensation returning to third digit but still some numbness/tingling in thumb/first finger from nerve block arm remains in sling and therapy outpatient after 2 weeks planned of note, patient reports that EVERY TIME she has surgery she has an episode of emesis the following morning.discussed next time with anesthesia possible use of scopolamine patch, passed along to ortho PA and possible antiemetics at d/c to be provided. she is hopeful for discharge today but will await final word from orthopedics. no fever/chills, chest pain, shortness of breath, abdominal pain, nausea, vomiting or dysuria. Review of Systems Review of Systems: All systems reviewed & are unremarkable except as noted in HPI & below Physical Exam Physical Exam: General: WD/WD elderly female sitting up in bed, no acute distress alert, oriented to person, [facility], march 2022, answering qu estions appropriately HEENT: head normocephalic atraumatic, mmm, trachea midline without deviation Resp: CTAB, no w/c, on RA CV: RRR, no m/r/g, no edema, cap refill wnl GI: +BS, soft, nontender : no sapp MSK/Neuro: hemovac with blood drainage, dressing c/d/i, sensation intact with exception light touch R thumb/index finger, hair tinter strength equal b/l UE. CN intact grossly, no focal deficit Psych: AOx3, pleasant and cooperative Results & Data Results & Data ([facility]) Vital Signs (Past 12 Hours) Vital Signs Temp Pulse Resp BP Pulse Ox 03/18/22 02:25 36.5 C 63 17 124/74 95 03/17/22 23:30 36.6 C 67 17 126/70 97 03/17/22 20:27 36.4 C L 68 17 128/70 95 Laboratory Results 03/18/22 03/18/22 03/17/22 Range/Units 05:44 05:44 10:40 WBC 6.00 (4.8-10.8) K/uL RBC 3.13 L (4.2-5.4) M/uL Hgb 10.1 L (12.0-16.0) g/dL Hct 29.7 L (37-47) % MCV 94.9 (80-100) fL MCH 32.3 (25-34) pg MCHC 34.0 (32-36) g/dL RDW Std Deviation 43.0 (36.4-46.3) fL RDW Coeff of Freeman 12.6 (11.5-14.5) % Plt Count 120 L (130-400) K/uL MPV 12.0 H (7.4-10.4) fL Immature Gran % (Auto) 0.0 % Neut % (Auto) 81.3 % Lymph % (Auto) 8.3 % [place] % (Auto) 10.2 % Eos % (Auto) 0.0 % Baso % (Auto) 0.2 % Neut # (Auto) 4.88 (1.4-6.5) K/uL Lymph # (Auto) 0.50 L (1.2-3.4) K/uL [place] # (Auto) 0.61 H (0.11-0.59) K/uL Eos # (Auto) 0.00 (0-0.5) K/uL Baso # (Auto) 0.01 (0-0.2) K/uL Immature Gran # (Auto) 0.00 (0.00-0.02) K/uL Platelet Estimate Decreased L (Normal) RBC Morphology Unremarkable Sodium 137 (136-145) mmol/L Potassium 4.4 (3.5-5.1) mmol/L Chloride 107 (98-107) mmol/L Carbon Dioxide 25 (21-32) mmol/L Anion Gap 5 (3-11) BUN 21 (6-23) mg/dl Creatinine 1.05 (0.6-1.2) mg/dl Est Cr Clr Drug Dosing 33.8 ml/min Est GFR ( Amer) 55.3 ml/min Est GFR (Non-Af Amer) 47.7 ml/min BUN/Creatinine Ratio 20.0 (10-20) Glucose 121 H (70-99(Fasting)) mg/dl Calcium 8.4 L (8.5-10.1) mg/dl SARS-CoV-2, RNA, NAAT NEGATIVE (NEGATIVE) Diagnostic Findings Shoulder X-Ray 03/17/22 16:34 RIGHT SHOULDER 2 VIEWS CLINICAL HISTORY: Postoperative examination. FINDINGS: 2 portable views the right shoulder are obtained. The skeletal structures are osteopenic. A right shoulder arthroplasty is in near anatomic alignment. No acute fracture is seen. There is widening at the AC joint. Skin clips, a surgical drain, soft tissue swelling, and subcutaneous gas overlying the right shoulder are expected postoperative findings. The right lung parenchyma is clear as visualized. IMPRESSION: Expected postoperative findings status post right shoulder arthroplasty. No acute fracture is seen. Electronically signed by: Mikey Mcclain M.D. 03/17/2022 5:02 PM PG Care Time/CCT Total # of Minutes Spent Total Time Spent with Patient: Total time spent is greater than 50% in coordination of care (as documented) at patient's floor/unit and/or counseling patient: Coding Level of Care Code 00701 Subseq Hosp Care Lvl 1 Diagnoses Primary osteoarthritis, right shoulder M19.011 Anxiety F41.9 Anemia D64.9 Hypertension I10 Glaucoma H40.9 Insomnia G47.00
[2022-03-18] MEDS: ONDANSETRON INJ 2 MG/ML 2 ML VIAL IV PRN ×2 (08:16→14:07)
[2022-03-18] MEDS: TIMOLOL MALEATE 0.25% OP SOLN 5 ML BTL OP SCH (08:19)
[2022-03-18] MEDS: DOCUSATE SODIUM 100 MG CAP PO SCH ×2 (08:19→20:38)
[2022-03-18] MEDS: MULTIVITAMIN TAB PO SCH (08:19)
[2022-03-18] MEDS: CHOLECALCIFEROL 1,000 UNITS 25 MCG TAB PO SCH (08:19)
[2022-03-18] MEDS ORDERED: GUAR GUM PO SCH (09:00)
[2022-03-18] MEDS ORDERED: hydroCHLOROthiazide 25 MG TAB PO SCH (09:00)
[2022-03-18] MEDS ORDERED: CITALOPRAM 40 MG TAB PO SCH (09:00)
[2022-03-18] MEDS ORDERED: NON-FORMULARY MEDICATION (Potassium Gluconate 595 mg (99 mg) Tablet) PO SCH (09:00)
[2022-03-18] MEDS ORDERED: NON-FORMULARY MEDICATION (Glucosamine-Chondroitin [Osteo Bi-Flex] 250-200 mg Tablet) PO SCH (09:00)
[2022-03-18] MEDS ORDERED: NON-FORMULARY MEDICATION (Multivit-Min-Iron-Fa-Lutein [Centrum Silver Women] 8 mg iron-400 PO SCH (09:00)
[2022-03-18] MEDS ORDERED: NON-FORMULARY MEDICATION (Food Supplemt, Lactose-Reduced Liquid) PO SCH (09:00)
--- NOTE | 2022-03-18 09:16 | Orthopedic Progress Note ---
Date of Service March 18, 2022 Assessment & Plan (1) Primary osteoarthritis, right shoulder: Plan: Postop day 1 status post reverse total shoulder arthroplasty PT/OT protocols. Nonweightbearing right upper extremity. DVT prophylaxis-aspirin p.o. daily, SCDs Pain management as written DC planning-patient will not need organized therapy for 2 weeks until seen back in the office. We will recheck her later today to see how her nausea is and if she is progressing and doing well, possible discharge to home today. Admission and Anticipated Discharge Date Admission Date: March 17, 2022 Supervising Physician Co-Signing Physician Notes Patient seen and examined. Agree with MEI Meneses's note as above. Patient is having trouble with nausea postoperatively, which is very common for her after surgical procedures. We will keep her overnight to allow this to continue to resolve. Likely discharge tomorrow. Subjective Postop day 1 Patient is sitting up in bed eating her breakfast. Patient states that she had gotten up earlier to her chair but became somewhat lightheaded and nauseated and ended up throwing up. She is feeling better now. She is sitting up in her bed eating a little bit of breakfast. She seems to be tolerating this. She states that she has a little bit of residual numbness and tingling in 3 of her fingers. Otherwise pain is still controlled. No other complaints. Physical Exam Physical Exam: Dressings are clean ,dry , and intact. Hemovac is present. Minimal drainage. She has good range of motion of her wrist and fingers. She has some slight decreased sensation in the first 3 fingers but again range of motion is intact. Capillary refills less than 2 seconds. Denies pain at the elbow. Results & Data ([facility]) Vital Signs (Past 12 Hours) Vital Signs Temp Pulse Resp BP Pulse Ox 03/18/22 07:43 36.8 C 64 16 121/67 97 03/18/22 02:25 36.5 C 63 17 124/74 95 03/17/22 23:30 36.6 C 67 17 126/70 97 Laboratory Results Laboratory Results WBC 6.00 K/uL (4.8-10.8) 03/18/22 05:44 RBC 3.13 M/uL (4.2-5.4) L 03/18/22 05:44 Hgb 10.1 g/dL (12.0-16.0) L 03/18/22 05:44 Hct 29.7 % (37-47) L 03/18/22 05:44 MCV 94.9 fL (80-100) 03/18/22 05:44 MCH 32.3 pg (25-34) 03/18/22 05:44 MCHC 34.0 g/dL (32-36) 03/18/22 05:44 RDW Std Deviation 43.0 fL (36.4-46.3) 03/18/22 05:44 RDW Coeff of Freeman 12.6 % (11.5-14.5) 03/18/22 05:44 Plt Count 120 K/uL (130-400) L 03/18/22 05:44 MPV 12.0 fL (7.4-10.4) H 03/18/22 05:44 Immature Gran % (Auto) 0.0 % 03/18/22 05:44 Neut % (Auto) 81.3 % 03/18/22 05:44 Lymph % (Auto) 8.3 % 03/18/22 05:44 [place] % (Auto) 10.2 % 03/18/22 05:44 Eos % (Auto) 0.0 % 03/18/22 05:44 Baso % (Auto) 0.2 % 03/18/22 05:44 Neut # (Auto) 4.88 K/uL (1.4-6.5) 03/18/22 05:44 Lymph # (Auto) 0.50 K/uL (1.2-3.4) L 03/18/22 05:44 [place] # (Auto) 0.61 K/uL (0.11-0.59) H 03/18/22 05:44 Eos # (Auto) 0.00 K/uL (0-0.5) 03/18/22 05:44 Baso # (Auto) 0.01 K/uL (0-0.2) 03/18/22 05:44 Immature Gran # (Auto) 0.00 K/uL (0.00-0.02) 03/18/22 05:44 Platelet Estimate Decreased (Normal) L 03/18/22 05:44 RBC Morphology Unremarkable 03/18/22 05:44 Sodium 137 mmol/L (136-145) 03/18/22 05:44 Potassium 4.4 mmol/L (3.5-5.1) 03/18/22 05:44 Chloride 107 mmol/L (98-107) 03/18/22 05:44 Carbon Dioxide 25 mmol/L (21-32) 03/18/22 05:44 Anion Gap 5 (3-11) 03/18/22 05:44 BUN 21 mg/dl (6-23) 03/18/22 05:44 Creatinine 1.05 mg/dl (0.6-1.2) 03/18/22 05:44 Est Cr Clr Drug Dosing 33.8 ml/min 03/18/22 05:44 Est GFR ( Amer) 55.3 ml/min 03/18/22 05:44 Est GFR (Non-Af Amer) 47.7 ml/min 03/18/22 05:44 BUN/Creatinine Ratio 20.0 (10-20) 03/18/22 05:44 Glucose 121 mg/dl (70-99(Fasting)) H 03/18/22 05:44 Calcium 8.4 mg/dl (8.5-10.1) L 03/18/22 05:44 SARS-CoV-2, RNA, NAAT NEGATIVE (NEGATIVE) 03/17/22 10:40 Impressions Shoulder X-Ray 03/17/22 16:34 RIGHT SHOULDER 2 VIEWS CLINICAL HISTORY: Postoperative examination. FINDINGS: 2 portable views the right shoulder are obtained. The skeletal structures are osteopenic. A right shoulder arthroplasty is in near anatomic alignment. No acute fracture is seen. There is widening at the AC joint. Skin clips, a surgical drain, soft tissue swelling, and subcutaneous gas overlying the right shoulder are expected postoperative findings. The right lung parenchyma is clear as visualized. IMPRESSION: Expected postoperative findings status post right shoulder arthroplasty. No acute fracture is seen. Electronically signed by: Mikey Mcclain M.D. 03/17/2022 5:02 PM
[2022-03-18] MEDS: HYDROmorphone INJ 0.5 MG/0.5 ML SYR IV PRN ×2 (12:53→17:23)
[2022-03-18] MEDS ORDERED: hydrOXYzine HCl 25 MG TAB PO STA (17:42)
[2022-03-18] MEDS: ACETAMINOPHEN 1,000 MG/100 ML VIAL IV SCH (18:14)
[2022-03-18] MEDS: SENNA 8.6 MG TAB PO SCH (20:38)
[2022-03-19] MEDS: ACETAMINOPHEN 1,000 MG/100 ML VIAL IV SCH ×2 (01:41→09:05)
--- NOTE | 2022-03-19 07:19 | Orthopedic Progress Note ---
Date of Service March 19, 2022 Assessment & Plan (1) Primary osteoarthritis, right shoulder: Plan: Postop day 2 status post reverse total shoulder arthroplasty PT/OT protocols. Nonweightbearing right upper extremity. DVT prophylaxis-aspirin p.o. daily, SCDs Pain management as written DC planning-patient will not need organized therapy for 6 weeks. Patient improving, nausea improved. Plan on discharge home today. Admission and Anticipated Discharge Date Admission Date: March 17, 2022 Subjective Patient is resting in bed. Feels comfortable, pain well controlled. Nausea has resolved. No other complaints. Review of Systems Review of Systems: All systems reviewed & are unremarkable except as noted in Subjective Physical Exam Physical Exam: Right shoulder sling is intact. Dressing is c/d/i. Fingers mobile with good pit slagman strength. Distally n/v status and sensation intact. Constitutional: well developed and well nourished; no acute distress Results & Data ([facility]) Vital Signs (Past 12 Hours) Vital Signs Temp Pulse Resp BP Pulse Ox 03/19/22 06:35 36.5 C 62 16 128/75 96 03/18/22 21:27 36.4 C L 62 16 135/73 97
[2022-03-19] MEDS: TIMOLOL MALEATE 0.25% OP SOLN 5 ML BTL OP SCH (07:30)
[2022-03-19] MEDS: DOCUSATE SODIUM 100 MG CAP PO SCH (07:30)
[2022-03-19] MEDS: CHOLECALCIFEROL 1,000 UNITS 25 MCG TAB PO SCH (07:30)
[2022-03-19] MEDS: MULTIVITAMIN TAB PO SCH (07:32)
--- NOTE | 2022-03-19 12:26 | Communication Note ---
Date of Service: March 19, 2022 Communication note as patient discharged prior to being seen. Improvement in anxiety with vistaril last evening and would rec f/u with her PCP regarding res tarting her SSRI vs prn vistaril if she does not want to be on a daily medication. No reported issues/confusion overnight per nursing staff. Vitals stable and pain controlled and discharged home. PA Supervision Note: I did not personally see or examine the patient today, but I verified all redman points of MEI Grady's assessment and plan with the following exceptions/additions: Noted preop Ur cx with Pseudomonas. Moot point now if asymptomatic but should f/u with PCP if develops symptoms. Luba Lopez M.D.
--- NOTE | 2022-03-21 19:20 | Discharge Summary ---
Date of Service March 21, 2022 Admission HPI Per Admitting Provider 86yo female with PMHx significant for HTN, anxiety, GERD presents with ongoing right shoulder pain. Pain is interfering with her daily activities. She has failed conservaitve measures and would like to proceed with surgical intervention. Patient denies headaches, sweats, fevers, chills, double vision, blurred vision, cough, sore throat, dysphagia, chest pain, sob, wheezing, n/v/d/c, numbness, tingling, fatigue, urinary symptoms, mood disorders. ROS positive for right shoulder. pain and stiffness. Admission Exam Per Admitting Provider Constitutional: well developed and well nourished; no acute distress Eyes: PERRL, conjunctivae normal, anicteric sclerae ENMT: external ear and nose normal, oropharynx normal Neck: trachea midline, no thyromegaly Respiratory: normal respiratory effort, lungs clear to auscultation Cardiovascular: Rate/Rhythm: regular rate and regular rhythm Heart Sounds: no murmur Extremities: + edema Musculoskeletal: Right shoulder: Crepitation noted with ROM. Diffuse tenderness. Positive impingement signs. FF to 100 degrees, abduction to 70 degrees, ER to 40 degrees. Weakness with strength testing. Skin: no rashes, warm and dry Neurologic: patellar DTR's 2+ bilat, sensation intact Psychiatric: A+Ox3, euthymic affect Principal Diagnosis Right shoulder osteoarthritis Discharge Exam Right shoulder sling is intact. Dressing is c/d/i. Fingers mobile with good steward/stewardess banquet strength. Distally n/v status and sensation intact. Constitutional well developed and well nourished; no acute distress Discharge Data Allergies Allergy/AdvReac Type Severity Reaction Status Date / Time alendronate sodium Allergy Unknown HAS NO Verified 03/17/22 11:03 IDEA OF REACTION finasteride [From Proscar] Allergy Unknown UNSURE OF Verified 03/17/22 11:03 REACTION oxaprozin Allergy Unknown UNSURE OF Verified 03/17/22 11:03 REACTION Consultations 03/12/22 16:30 Consult Hospitalist Routine Procedures Performed Operation Date: 03/17/22 12:50 Actual Procedures p Right Total Shoulder Arthroplasty Reverse(Right), (Right) - Moses Luo MD s removal hardware (peek suture anchors and suture material),(Right) - Moses Luo MD s excision large subacromial subdeltoid bursa, debridement and repair posterior rotator cuff(Right) - Moses Luo MD Ordered Studies 03/17/22 05:00 US - OR guided needle placemen Routine Hospital Course (1) Primary osteoarthritis, right shoulder: Postop day 2 status post reverse total shoulder arthroplasty PT/OT protocols. Nonweightbearing right upper extremity. DVT prophylaxis-aspirin p.o. daily, SCDs Pain management as written DC planning-patient will not need organized therapy for 6 weeks. Patient improving, nausea improved. Plan on discharge home today. Postop day 1 status post reverse total shoulder arthroplasty PT/OT protocols. Nonweightbearing right upper extremity. DVT prophylaxis-aspirin p.o. daily, SCDs Pain management as written DC planning-patient will not need organized therapy for 2 weeks until seen back in the office. We will recheck her later today to see how her nausea is and if she is progressing and doing well, possible discharge to home today. Lab Results 03/17/22 03/18/22 03/18/22 Range/Units 10:40 05:44 05:44 WBC 6.00 (4.8-10.8) K/uL RBC 3.13 L (4.2-5.4) M/uL Hgb 10.1 L (12.0-16.0) g/dL Hct 29.7 L (37-47) % MCV 94.9 (80-100) fL MCH 32.3 (25-34) pg MCHC 34.0 (32-36) g/dL RDW Std Deviation 43.0 (36.4-46.3) fL RDW Coeff of Freeman 12.6 (11.5-14.5) % Plt Count 120 L (130-400) K/uL MPV 12.0 H (7.4-10.4) fL Immature Gran % (Auto) 0.0 % Neut % (Auto) 81.3 % Lymph % (Auto) 8.3 % [place] % (Auto) 10.2 % Eos % (Auto) 0.0 % Baso % (Auto) 0.2 % Neut # (Auto) 4.88 (1.4-6.5) K/uL Lymph # (Auto) 0.50 L (1.2-3.4) K/uL [place] # (Auto) 0.61 H (0.11-0.59) K/uL Eos # (Auto) 0.00 (0-0.5) K/uL Baso # (Auto) 0.01 (0-0.2) K/uL Immature Gran # (Auto) 0.00 (0.00-0.02) K/uL Platelet Estimate Decreased L (Normal) RBC Morphology Unremarkable Sodium 137 (136-145) mmol/L Potassium 4.4 (3.5-5.1) mmol/L Chloride 107 (98-107) mmol/L Carbon Dioxide 25 (21-32) mmol/L Anion Gap 5 (3-11) BUN 21 (6-23) mg/dl Creatinine 1.05 (0.6-1.2) mg/dl Est Cr Clr Drug Dosing 33.8 ml/min Est GFR ( Amer) 55.3 ml/min Est GFR (Non-Af Amer) 47.7 ml/min BUN/Creatinine Ratio 20.0 (10-20) Glucose 121 H (70-99(Fasting)) mg/dl Calcium 8.4 L (8.5-10.1) mg/dl SARS-CoV-2, RNA, NAAT NEGATIVE (NEGATIVE) Total Time Total Time Spent Total Time Spent (In Minutes): 20 Discharge Plan Discharge Items Patient Disposition: Home - Self-Care Reason For Visit: Right Shoulder Osteoarthritis Discharge Diagnosis: Right Shoulder Osteoarthritis Activity: Per Instructions section Weightbearing: Right non-weightbearing Weightbearing Comment: Use sling at all times except for changing clothes or bathing Non-emergency contact: Surgeon Call non-emergency contact if: you have any medication questions, your pain is not controlled, your pain is concerning for you, you have a fever, your temperature is above 101, your wound has increased redness and your wound has increased drainage Follow-up/Referrals: Moses Luo MD [Surgeon] - (Follow-up in 14 days from the day of your surgery for your first postoperative visit.) Xiomy Mendosa CRNP [Primary Care Provider] - Diet: Regular Addtl Attending Provider Instructions: ACTIVITY RECOMMENDATIONS: SELF CARE INSTRUCTIONS AFTER TOTAL SHOULDER ARTHROPLASTY REVERSE A. You may do daily exercises as taught in physical therapy while in hospital. No lifting with the operative arm. B. You are to wear your sling/immobilizer at all times EXCEPT when performing your daily exercises and for hygiene purposes. C. You may perform dry, daily dressing changes. Please keep your incision covered. You may shower 48 hours after surgery. Do not apply soap or any ointment/lotions directly over incision. Do not soak incision in bath tub/swimming pool. D. You may use ice as needed to operative shoulder. SPECIAL CARE INSTRUCTIONS: VERY IMPORTANT TO READ AND REVIEW A. There are a few signs you need to watch for after you are home. Call [facility] at [phone] if you experience any of the followin. Increased severe shoulder pain. Some pain is expected especially when you exercise. 2. Increased swelling in you shoulder or arm; pain or swelling in either upper extremity. 3. Any fluid drainage from the incision. 4. Shortness of breath or chest pain. B. Please call [facility] at [phone] if you have any questions or concerns about your operation or recovery. C. Call your physician if: 1. Temperature is greater than 101 degrees (F). 2. Pain is not relieved by prescribed pain medications. 3. Increase drainage or redness from incision. 4. Unanswered questions or concerns. FOLLOW UP VISIT: Please call [facility] at [phone] to schedule a follow up appointment with Dr. Luo or his PA in 12-14 days from your surgery date. Stand-Alone Forms: [facility] [employer], Smoking Cessation Medications and DC Order Prescriptions: New acetaminophen [Tylenol Extra Strength] 500 mg Tablet 1,000 mg PO Q8 14 Days Qty: 84 RF: 0 oxycodone 5 mg Tablet 5 mg PO .Q4h-6h MDD 6 PRN (Reason: pain) Qty: 30 RF: 0 Continued citalopram 40 mg Tablet 40 mg PO QAM RF: 0 trazodone 50 mg Tablet 50 mg PO HS PRN (Reason: Sleep) RF: 0 hydrochlorothiazide 12.5 mg Capsule 12.5 mg PO QAM RF: 0 cholecalciferol (vitamin D3) [Vitamin D3] 25 mcg (1,000 unit) Capsule 25 mcg PO QAM RF: 0 potassium gluconate 595 mg (99 mg) Tablet 595 mg PO QAM RF: 0 Centrum Silver Women 8 mg iron-400 mcg-300 mcg Tablet 1 tab PO QAM RF: 0 guar gum Packet 1 - 2 tbsp PO DAILY RF: 0 famotidine 20 mg Tablet 20 mg PO DAILY PRN (Reason: Acid Reflux) RF: 0 timolol 0.25 % Drops 1 drp OPHTHALMIC (EYE) QAM RF: 0 food supplemt, lactose-reduced Liquid 1 - 2 ea PO DAILY RF: 0 Discontinued glucosamine-chondroitin [Osteo Bi-Flex] 250-200 mg Tablet 2 tab PO QAM RF: 0 Fish Oil Capsule 1,000 mg PO QAM RF: 0 acetaminophen [Tylenol Extra Strength] 500 mg Capsule 1,000 mg PO Q6H PRN (Reason: Pain) RF: 0 Discharge Orders: Discharge Order (Routine); Ordered 03/19/22 Ordered By: Jose Francisco Mahoney/Other Patient Handouts: Controlling High Blood Pressure Admission Data Admit Date/Time: 03/17/22 16:34 Attending Provider: Moses Luo Admit Provider: Moses Luo Primary Care Provider: Xiomy Mendosa Other Providers: Luba Lopez Other Interventions: Discharge Summary Assessment (RN) Last Done: 03/19/22 08:41
== END 2022-03-19 09:59 | disposition home or self-care (01) | DRG 483 ==
LOC: ASU 10:33 → 3E 16:34